=== PATIENT | male | born 2005 | race Caucasian/White ===

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

== ENCOUNTER 2023-02-11 19:45 | Emergency (ER) | payer BC, OTHER ==
[2023-02-11 19:52] VITALS: BP 136/99; PULSE 94; RESP 18; TEMP 98.2; BMI 34.9
== END 2023-02-11 22:41 | disposition home or self-care (01) ==
LOC: JERFT 19:45
DX: R09.81 Nasal congestion (principal); R05.9 Cough, unspecified; R09.3 Abnormal sputum; J02.9 Acute pharyngitis, unspecified; Z20.822 Contact with and (suspected) exposure to COVID-19
CPT/HCPCS: 0241U-QW; 87651; 99283-25

== ENCOUNTER 2023-08-08 03:03 | Emergency (ER) | payer BC, OTHER ==
[2023-08-08 03:11] VITALS: BP 143/85; PULSE 133; RESP 18; TEMP 99.2; BMI 36.5
[2023-08-08] MEDS ORDERED: ONDANSETRON 4 MG/2 ML VIAL IVPUSH ONE (03:49)
[2023-08-08] MEDS ORDERED: SODIUM CHLORIDE 1,000 ML IV STA (03:49)
[2023-08-08] MEDS ORDERED: FAMOTIDINE 20 MG/50 ML IVPB 20 MG/50 ML MG IVPB ONE ×2 (03:53→03:56)
[2023-08-08] MEDS ORDERED: ONDANSETRON 4 MG/2 ML VIAL ONE (03:56)
[2023-08-08 04:16] LABS: BASO % 0.2 % (0-2.0); EOS % 0.6 % (0-4.5); HEMATOCRIT 48.1 % (35.4-49); HEMOGLOBIN 16.4 GM/dL (11.7-16.9); LYMPH % 4.5 % (8-40); MCH 28.8 pg (25.7-33.7); MEAN CELL VOLUME 84.7 fl (80-96); MEAN PLT VOLUME 7.8 fl (7.5-11.1); MONO % 5.1 % (3.8-10.2); NEUT % 89.6 % (42.8-82.8); PLATELET COUNT 381 10^3/uL (134-434); RBC 5.68 M/mm3 (4.00-5.60); RDW 12.8 % (11.9-15.9); WHITE BLOOD COUNT 9.3 K/mm3 (4.0-10.0)
[2023-08-08 04:43] LABS: CALCIUM 9.4 mg/dL (8.5-10.1)
[2023-08-08 04:44] LABS: BLOOD UREA NITROGEN 16.8 mg/dL (7-18)
[2023-08-08 04:47] LABS: CREATININE 0.9 mg/dL (0.55-1.3)
[2023-08-08 04:48] LABS: TOT PROT 7.6 g/dl (6.4-8.2)
[2023-08-08 04:49] LABS: BILIRUBIN,TOTAL 0.9 mg/dL (0.2-1)
== END 2023-08-08 06:04 | disposition home or self-care (01) ==
LOC: JER 03:03
PROC: 3E033GC Introduction of Other Therapeutic Substance into Peripheral Vein, Percutaneous Approach (ICD-10-PCS; principal; 2023-08-08)
PROC: 3E033GC Introduction of Other Therapeutic Substance into Peripheral Vein, Percutaneous Approach (ICD-10-PCS; 2023-08-08)
PROC: 3E0337Z Introduction of Electrolytic and Water Balance Substance into Peripheral Vein, Percutaneous Approach (ICD-10-PCS; 2023-08-08)
DX: R10.9 Unspecified abdominal pain (principal); R11.2 Nausea with vomiting, unspecified; R19.7 Diarrhea, unspecified; Z20.822 Contact with and (suspected) exposure to COVID-19
CPT/HCPCS: 0241U-QW; 36415; 80053; 83690; 85025; 99284-25